=== PATIENT | male | born 1995 | race Caucasian/White ===

== ENCOUNTER 2018-06-09 11:54 | Emergency (ER) | payer MEDICAID ==
[~2018-06-09] VITALS: Ht 188 cm; Wt 109.0 kg
[~2018-06-09 11:54] MED LIST: CLOT15CR73 TP
[2018-06-09 12:21] VITALS: BP 151/91
== END 2018-06-09 12:42 | disposition left against medical advice (07) ==
LOC: ER 11:54
DX: M62.838 Other muscle spasm (principal); Z53.21 Procedure and treatment not carried out due to patient leaving prior to being seen by health care provider
CPT/HCPCS: 93005